=== PATIENT | female | born 1995 | race Caucasian/White ===

== ENCOUNTER 2025-02-28 15:30 | Emergency (ER) | payer BC, SELFPAY ==
--- OUTSIDE RECORDS SUMMARY | 2019-12-25 05:53 | XMS_ITS | Continuity of Care Document ---
Author Organization [facility] Address [address] [place] [address] Phone Care Team Providers Care Corporate Fitness Program Coordinator Name Role Phone Cody Keane MD Unavailable Unavailable Allergies, Adverse Reactions, Alerts Substance Reaction Status Criticality iodine Unknown(not reported) Active No Inf ormation clams Active No Information shrimp Active No Information milk Active No Information Medications Medication Instructions Dosage Effective Dates (start - stop) Status Comments citalopram 20 mg tablet take 1 tablet by oral route every day 20 MG - Active montelukast 10 mg tablet take 1 tablet by oral route every day in the evening 10 MG - Active Claritin Liqui-Gel 10 mg capsule - Active Tri-Sprintec (28) 0.18 mg(7)/0.215 mg(7)/0.25 mg(7)-35 mcg tablet take 1 tablet by oral route every day 1.00 tablet - Active cyclobenzaprine 10 mg tablet take 1 tablet by oral route every day 10 MG - Active tramadol 50 mg tablet take 1 tablet by oral route every 8 hours as needed 50 MG - Active Proair Digihaler 90 mcg/actuation aerosol powder breath act, sensor inhale 2 puff by inhalation route every 4 - 6 hours as needed - Active Auvi-Q 0.3 mg/0.3 mL injection, auto-injector inject 0.3 milliliter by intramuscular route once as needed for anaphylaxis 0.3 MG - Active Cosentyx 150 mg/mL subcutaneous syringe inject 2 milliliter by subcutaneous route every 4 weeks in the abdomen, thigh, or outer area of upper arm (rotate sites) 300 MG - Active prednisone 5 mg tablet take 1 tablet by oral route every day 5 MG - Active Womens Daily Gummies 200 mcg chewable tablet - Active D3-2000 50 mcg (2,000 unit) capsule - Active meloxicam 15 mg tablet take 1 tablet by oral route every day 15 MG - Active Procedures Procedure Date OFFICE/OUTPATIENT VISIT EST OFFICE/OUTPATIENT VISIT NEW Advance Directives Directive Yes / No Effective Date File Name No Information Encounters Encounter Description Practice Location Reason(s) For Visit Diagnoses Date Provider Providers Copied on Encounter [facility] , [address] [place] [address], [place], [address], tel:[phone] [facility] No Information 0- 0 Keane Cody. [address] [facility] [employer] [address], [place], [place], [id number] , [place]. tel: [phone] OFFICE/OUTPAT IENT VISIT EST [facility] , [address] [address], [place], [address], tel:[phone] [facility] Patellofemoral pain syndrome of left knee 0 Keane Cody. [address] [facility] [employer] [address], [place], [place], [id number] , [place]. tel: [phone] OFFICE/OUTPAT IENT VISIT NEW [facility] , [address] [place] [address], [place], [address], [place] tel:[phone] [facility] Body mass index [BMI]30.0-30.9, adultAcute pain of left knee 0 Keane Cody. [address] [facility] [address], [place], [place], [id number] , [place]. tel: [phone] Referring Provider: Camryn Hollins, [address] [facility] [address] [facility] [address], [place], [address] . tel:[phone] Family History Family Member Type Diagnosis Age At Onset Mother Problem Alive and well Father Problem Alive and well Payers Payer name Insurance type Covered green party ID Authoriza tisuyapa(s) Blue Access PPO E2 OT [id number] Social History Type Description Quantity Date Captured Comments Alcohol Use Details Unknown Caffeine Use Details Unknown Tobacco Use Status No Information Smoking Status No Information Sex Female Chief Complaint And Reason For Visit No Information Reason For Referral Reason For Referral No Information Plan Of Treatment Date Type Action Status Referral Ordered: MRI ANY JT LXTR C-MATRL LT knee Appointment date/timeframe: 12/20/2019 ordered History Of Present Illness Encounter Date Complaint History Of Prese nt Illness No Information Functional Status Date Functional Assessmen t No Information Instructions Date Instruction Additional Infor kimo Giving encouragement to exercise Related to Body mass index [BMI]30.0-30.9, adult Assessments Type Assessment Date No Information Patient Care Teams Name Effective Dates (start - stop) Status Members No Information
--- OUTSIDE RECORDS SUMMARY | 2020-01-29 08:58 | XMS_ITS | Continuity of Care Document ---
Author Organization [facility] Address [address] [place] [address] [place] [address] Phone Care Team Providers Care Filer And Sander Name Role Phone Herve PT, DPT, Jessica Unavailable Unavaila ble Procedures Procedure Date Therapeutic Activities Hot or Cold Pack Manual Therapy Neuromuscular Re-Ed PT Evaluation Moderate Complexity Therapeutic Activities Neuromuscular Re-Ed Gait Training Progress Note Neuromuscular Re-Ed Therapeutic Activities Therapeutic Exercise Hot or Cold Pack Therapeutic Activities Neuromuscular Re-Ed Therapeutic Exercise Manual Therapy Therapeutic Activities Neuromuscular Re-Ed Therapeutic Exercise Hot or Cold Pack Manual Therapy Therapeutic Activities Therapeutic Exercise Neuromuscular Re-Ed Manual Therapy Hot or Cold Pack Therapeutic Activities Neuromuscular Re-Ed Therapeutic Exercise Manual Therapy Hot or Cold Pack PT Evaluation Moderate Complexity Therapeutic Exercise Progress Note Therapeutic Exercise Therapeutic Activities Neuromuscular Re-Ed Manual Therapy Therapeutic Exercise Therapeutic Activities Hot or Cold Pack Therapeutic Activities Manual Therapy Neuromuscular Re-Ed Hot or Cold Pack Therapeutic Activities Neuromuscular Re-Ed Hot or Cold Pack Therapeutic Exercise Therapeutic Activities Neuromuscular Re-Ed Therapeutic Activities Neuromuscular Re-Ed Manual Therapy Hot or Cold Pack Therapeutic Activities Manual Therapy Therapeutic Activities Neuromuscular Re-Ed Manual Therapy Hot or Cold Pack Therapeutic Activities Neuromuscular Re-Ed Manual Therapy Hot or Cold Pack Therapeutic Activities Neuromuscular Re-Ed Manual Therapy Therapeutic Activities Neuromuscular Re-Ed Manual Therapy Hot or Cold Pack PT Evaluation Low Complexity Therapeutic Activities Neuromuscular Re-Ed Hot or Cold Pack Advance Directives Directive Yes / No Effective Date File Name No Information Encounters Encounter Description Practice Location Reason(s) For Visit Diagnoses Date Provider Providers Copied on Encounter [facility], [id number], tel:[phone] [employer] No Information Herve Lopez. . [facility], [place], [address], tel:[phone] [employer] No Information Herve Jessica. . Referring Provider: Cody Perez, [address] [facility] [address], [place], [address]. tel:[phone] [facility], [place], [id number], tel:[phone] [facility] [place] No Information Brooke Blackwell. [address] [facility], [address], [place], [address], [place]. tel:[phone] Referring Provider: Cody Perez, [address] [facility], [place], [address]. tel:[phone] [facility], [address] [place], [place] [address], [place], [place], [id number], [place] tel:[phone] [facility] No Information Beffa Sara. [address] [facility], [address], [place], [address], [place]. tel:[phone] Referring Provider: Primitivo Alfaro, [facility] [place] [place], [place], [address]. tel:[phone] [facility], [address] [place], [place] [address], [place], [place], [address], [place] tel:[phone] [facility] No Information Beffa Sara. [address] [facility], [address], [place], [address], [place]. tel:[phone] Referring Provider: [facility] [address], [place], [address]. tel:[phone] [address], [place], [place], [address], [place] tel:[phone] [facility] No Information Beffa Sara. [address] [facility], [address], [place], [address], [place]. tel:[phone] Referring Provider: Primitivo Alfaro [address] [facility] [address], [place], [address]. tel:[phone] [address], [place], [place], [address], [place] tel:[phone] [place] No Information Beffa Sara. [address] [facility], [address], [place], [address], . tel:[phone] Referring Provider: Primitivo Alfaro, [address], [place], [address]. tel:[phone] [facility], [address] [place] [address] [address], [place], [place], [address], [place] tel:[phone] [employer] No Information Herve Lopez. . Referring Provider: Primitivo Alfaro, [address], [place], [address]. tel:[phone], [place], [place], [address], tel:[phone] [employer] No Information Ijeoma Ruiz. [address] [place] [address], [address], [place], [place], [facility], . tel:[phone] Referring Provider: Primitivo Alfaro, [address], [place], [address]. tel:[phone] [facility] [address], [place], [place], [address], [place] tel:[phone] [employer] No Information Herve Lopez. . Referring Provider: Layo Cazares, [address] [facility] [address], [place], [address]. tel:[phone], [place], [place], [address], [place] tel:[phone] [employer] No Information Herve Lopez. . Referring Provider: Layo Cazares, [address] [facility] [address], [place], [address]. tel:[phone] [facility] [address], [place], [place], [address], [place] tel:[phone] [employer] No Information Edgar Jessica. . Referring Provider: Layo Cazares, [address] [facility] [address], [place], [address]. tel:[phone] [facility] [address], [place], [place], [address], tel:[phone] [employer] No Information Edgar Jessica. . Referring Provider: Layo Cazares, [address] [facility] [address], [place], [address]. tel:[phone] [facility] [address], [place], [place], [address], tel:[phone] [employer] No Information Edgar Jessica. . Referring Provider: Chong Banks [facility] [address] [place] [address], [address]. tel:[phone] [facility] [address], [place], [place], [address], [place] tel:[phone] [employer] No Information Edgar Jessica. . Referring Provider: Layo Cazares, [address] [facility] [address] [place] [address], [address]. tel:[phone] [facility] [address], [place], [place], [address], [place] tel:[phone] [employer] No Information Edgar Jessica. . Referring Provider: Layo Cazares [address] [facility] [address] [place] [address], [address]. tel:[phone] [facility] [address], [place], [place], [address], tel:[phone] [employer] No Information Ijeoma Ruiz. [address] [facility], [address], [place], [address], . tel:[phone] Referring Provider: Layo Cazares, [address], [place], [address]. tel:[phone], [place], [place], [address], [place] tel:[phone] [facility] [place] No Information Ijeoma Ruiz. [address] [facility], [address], [place], [place], [facility], . tel:[phone] Referring Provider: Layo Cazares, [address] [facility] [address], [place], [address]. tel:[phone], [place], [place], [address], tel:[phone] [facility] [place] Sciatica, right side Herve Lopez. . Referring Provider: Layo Cazares, [address], [place], [address]. tel:[phone], [place], [place], [address], [place] tel:[phone] [facility] [place] Sciatica, right side Herve Lopez. . Referring Provider: Layo Cazares, [address], [place], [address]. tel:[phone], [place], [place], [address], [place] tel:[phone] [facility] [place] Sciatica, right side Herve Lopez. . Referring Provider: Layo Cazares, [address], [place], [address]. tel:[phone] Family History Family Member Type Diagnosis Age At Onset No Information Payers Payer name Insurance type Covered green party ID Authormassielcolin champion(s) [facility] Evelyne SHAH [id number] Social History Type Description Quantity Date Captured Comments Sex Female Smoking Status No Information Chief Complaint And Reason For Visit No Information Reason For Referral Reason For Referral No Information Plan Of Treatment Date Type Action Status Referral Ordered: Referrals: Specialist. Evaluate and Treat (related to Adjustment disorder with depressed mood) ordered Referral Ordered: Referrals: Specialist. Evaluate and Treat (related to F43.21) ordered Referral Ordered: PCP timeframe: 1 week. (related to Overweight) ordered Referral Ordered: Clinical Psychology (related to Depression) ordered Referral Ordered: Weight management: Referral to physician timeframe: 1 Month (related to Overweight) ordered Referral Ordered: PCP timeframe: 1 week. (related to Overweight) ordered Referral Ordered: Referrals: Specialist. Evaluate and Treat (related to F43.21) ordered Referral Ordered: Clinical Psychology (related to Depression) ordered Referral Ordered: PCP timeframe: 1 week. (related to Overweight) ordered History Of Present Illness Encounter Date Complaint History Of Prese nt Illness No Information Functional Status Date Functional Assessmen t No Information Instructions Date Instruction Additional Millicentr kimo Giving encouragement to exercise Related to Overweight Assessments Type Assessment Date No Information Patient Care Teams Name Effective Dates (start - stop) Status Members No Information
[2025-02-28] VITALS (10 sets, daily range): BP systolic 114–136; BP diastolic 76–88; PULSE 86; RESP 16; TEMP 36.4; O2SAT 98–100
--- NOTE | ~2025-02-28 | XR_ITS ---
EXAMINATION: XR chest 2V 02/28/2025 16:11 INDICATION: Shortness of breath PROCEDURE: 2 view chest COMPARISON: No prior studies for comparison. FINDINGS: The lungs are clear. The cardiomediastinal silhouette is within normal limits. There are no pleural effusions. There is no pneumothorax suspected. IMPRESSION: 1: NO ACUTE CARDIOPULMONARY DISEASE. Reviewed, dictated and finalized at location [employer]
[2025-02-28] MEDS: SODIUM CHLORIDE 0.9% IV 1,000 ML 999 ML IV CONT (16:19)
[2025-02-28 16:24] LABS: Hematocrit 41.5 % (37.0-47.0); Hemoglobin 13.7 g/dL (12.0-15.0); Immature Granulocyte Percent A 0.6 % (0-0.5); Lymphocytes Absolute Auto 0.85 K/mm3 (0.9-3.2); Mean Corpuscular HGB Conc 33.0 g/dl (32-36); Mean Corpuscular Hemoglobin 27.7 pg (26-34); Mean Corpuscular Volume 83.8 fl (80-100); Nucleated Red Blood Cells Absolute Auto 0.000 K/mm3 (0.0-0.012); Nucleated Red Blood Cells Perc 0.0 % (0.0-0.2); Platelet Count Result 471 k/mm3 (150-375); Red Blood Count 4.95 M/mm3 (4.2-5.4); White Blood Count 16.9 K/mm3 (4.5-10.0)
[2025-02-28 16:34] LABS: Alanine Aminotransferase 32 U/L (6-35); Albumin Level 4.6 g/dL (3.5-5.1); Alkaline Phosphatase 64 U/L (38-126); Anion Gap 10 mmol/L (4-12); Aspartate Amino Transferase 29 U/L (14-36); Bilirubin,Total 0.5 mg/dL (0.2-1.3); Blood Urea Nitrogen 13 mg/dL (7-17); Calcium 9.9 mg/dL (8.4-10.2); Carbon Dioxide 23 mmol/L (22-30); Chloride 106 mmol/L (98-107); Estimated Glomerular Filt Rate > 60; Glucose 119 mg/dL (65-110); Potassium 4.0 mmol/L (3.4-5.0); Sodium 139 mmol/L (137-145); Total Protein 8.7 g/dL (6.3-8.2)
--- OUTSIDE RECORDS SUMMARY | 2025-02-28 17:46 | XMS_ITS | Data Portability ---
Author Organization [facility] , [facility] Address [address] [place] [address] Assessment No assessment recorded. Plan of Treatment Reminders Order Date Submit Date Provider Last Modified By Organization Details Last Modified Time Details Appointments None recorded. Lab pap, LB 2024 025 [facility], [address] [place], [address], 5 12:08:23 unlisted lab - Pap reflex hold plus CT/GC/tric h 2024 025 [facility] Alex, [address] [place], [address], 15:40:30 Referral None recorded. Procedures None recorded. Surgeries None recorded. Imaging None recorded. Medication Orders None recorded. Patient TargetsNo targets recorded. Patient Instructions Encounter Date Encounter Id Patient Instructions Last Modified By Organization Details Last Modified Time 05/03/2024 [id number] A healthy lifestyle: care instructions [email or web address] Not available 05/03/2024 14:28:59 Following the [employer] Food Guide: Care Instructions [email or web address] Not available 05/03/2024 14:28:59 exercise program : getting started bnotzke Not available 05/03/2024 14:28:59 contraception information [email or web address] Not available 05/03/2024 14:28:59 Reason for Referral None Reported. Results Created Date Observation Date Name Description Value Unit Range Abnormal Flag Note LastModifiedBy Organization Detail LastModifiedTime 05/03/1905/07/2024 THINP REP TIS PAP clinical information: normal None given Not Available [address] [place], [address], 05/07/2024 12:08:23 05/03/19 25 05/07/2024 THINP REP TIS PAP LMP: normal NONE GIVEN Not Available [address] [place], [address], 05/07/2024 12:08:23 05/03/19 25 05/07/2024 THINP REP TIS PAP prev. Pap: normal NONE GIVEN Not Available [address], [address], 05/07/2024 12:08:23 05/03/19 25 05/07/2024 THINP REP TIS PAP prev. BX: normal NONE GIVEN Not Available [address], [address], 05/07/2024 12:08:23 05/03/19 25 05/07/2024 THINP REP TIS PAP source: normal Cervi x Not Available [address], [address], 05/07/2024 12:08:23 05/03/19 25 05/07/2024 THINP REP TIS PAP statement of adequacy: normal Satis facto ry for evalu ation . Endoc ervic al/tr ansfo rmati on zone compo nent prese nt. Age and/o r menst rual statu s not provi ded Not Available [address], [address], 05/07/2024 12:08:23 05/03/19 25 05/07/2024 THINP REP TIS PAP interpretati on/result: normal Cytol ogy Resul ts: Negat micah for intra epith elial lesio n or malig issac . Not Available [address] [place], [address], 05/07/2024 12:08:23 05/03/19 25 05/07/2024 THINP REP TIS PAP comment: normal This Pap test has been evalu ated with jefe littlejohn techn ology . Not Available [facility] [address] [place], [address], 05/07/2024 12:08:23 05/03/19 25 05/07/2024 THINP REP TIS PAP cytotechnolo gist: normal CAMPBELL, CT( CP) CT Scree judith locat ion: [address] [place] [address] Not Available [facility] [address] [place], [address], 05/07/2024 12:08:23 05/03/19 25 05/07/2024 THINP REP TIS PAP comment EXPLA NATOR Y NOTE: The Pap is a scree judith test for cervi rebel cance r. It is not a diagn ostic test and is subje ct to false negat micah and false posit micah resul ts. It is most relia ble when a satis facto ry sampl e, regul tyra obtai manisha, is submi tted with relev ant clini rebel findi ngs and histo ry, and when the Pap resul t is evalu ated along with histo dave and curre nt clini rebel infor matio n. Not Available [facility] [address], [place], [address], 05/07/2024 12:08:23 05/03/19 25 05/07/2024 CT/GC /TRIC H + HOLD trichomonas vaginalis TRICH neg negati ve normal Not Available [facility] [address] [place], [address], 05/07/2024 15:40:30 05/03/19 25 05/07/2024 CT/GC /TRIC H + HOLD chlamydia trachomatis CT neg negati ve normal This repor t is inten ded for us in clini rebel monit oring and manag ement of patie nts. It is not inten ded for use in medic al-le gal appli catio n. Not Available [facility] [address] [place], [address], 05/07/2024 15:40:30 05/03/19 25 05/07/2024 CT/GC /TRIC H + HOLD neisseria gonorrhoeae GC neg negati ve normal This repor t is inten ded for us in clini rebel monit oring and manag ement of patikatherin nts. It is not inten ded for use in medic al-le gal appli catio n. Not Available [facility] Alex [address] [facility], [place], [address], 05/07/2024 15:40:30 Result Notes None recorded. Problems Name Problem SNOMED Code Status Onset Date Resolution Date Notes Provider Name and Address Organization Details Recorded Time Formerly [facility], Later [facility] [id number] Active 2024 Saira aguilar, [facility] 14:02:44 Problem Notes None recorded. Procedures Surgical History Date Name Laterality Status Provider Name and Address Organization Details Recorded Time 05/03/19 Date of Last Pap Smear completed [facility] [address] [facility], [place], [address], [facility] 05/03/2024 14:28:22 lumbar microdiscectomy completed Saira Monge [facility] 05/03/2024 14:04:30 Imaging Results None recorded. Procedure Notes None recorded. Medical Equipment None Reported. Allergies Allergen ID Allergen Name Allergen Category Reaction Reaction Severity Criticality Documentation Date Start Date Code Code System Note Provider Name and Address Organization Details Recorded Time 464816 iodine medicatio n Not available Not available Not available 05/03/20242019 5933 RxNorm Saira aguilar, [facility] 5 14:10:51 384256 latex environme nt,medica tion rash Not available high 05/03/20242015 20301 91 RxNorm unrec ogniz ed react ion (text : Unkno wn, code: [id number]) (from exter nal sourc e) Saira aguilar, [facility] 14:10:54 Medications Name Sig Start Date Stop Date Status Note LastModified by Organization Details LastModified Time levothyroxin e active 75 mg Not Available Not Available Not Available Vitamin D3 active Not Available Not Av ailable Not Available Zyrtec active Not Available Not Availa ble Not Available Advair Diskus active Not Available Not Available Not Available Abilify active Not Available Not Avail able Not Available albuterol 90 mcg-budesoni de 80 mcg/actuatio n HFA aerosol inhaler Inhale by inhalation route. active Not Available Not Available No t Available Vitals Date Recorded Body height Body mass index (BMI) Body weight Body temperature Systolic And Diastolic Provider Name and Address Organization Details Last Updated DateTime 05/03/2024 172.72 cm 24.1 kg/m2 27552.7 5 g 97.3 [degF] 104/62 mm[Hg] Frankypaula Monge [facility] 14:10:00 Social History Question Answer Notes LastModified by [employer] Details LastModified Time Tobacco Smoking Status Never Smoker Yvesvalentinapaula Monge null, [facility] 05/03/2024 13:53:04 If You Are , What Was Your Level Of Alcohol Consumption Prior To ? None Information not available 05/03/2024 How Many Years Have You Consumed Alcohol? 10 [email or web address] Information not available 05/03/2024 Are You Blind Or Do You Have Difficulty Seeing? Yes [email or web address] Information not available 05/03/2024 Are You Deaf Or Do You Have Serious Difficulty Hearing? No [email or web address] Information not available 05/03/2024 What Type Of Diet Are You Following? REGULAR [email or web address] Information not available 05/03/2024 Which Illicit Or Recreational Drugs Have You Used? Marijuana [email or web address] Information not available 05/03/2024 How Many Children Do You Have? 0 [email or web address] Information not available 05/03/2024 What Is Your Relationship Status? Other [email or web address] Information not available 05/03/2024 Are You Sexually Active? Yes [email or web address] Information not available 05/03/2024 Have You Used IV Drugs? No [email or web address] Information not available 05/03/2024 Sex: Unknown Functional Status Question Answer Note LastModified by Organizat ion Details LastModified Time Do you use any illicit or recreational drugs? Yes [email or web address] Information not available 05/03/2024 What is your level of alcohol consumption? Occasional [email or web address] Information not available 05/03/2024 Are you currently employed? No [email or web address] Information not available 05/03/2024 What is your exercise level? Occasional [email or web address] Information not available 05/03/2024 Mental Status None recorded. Family History Relationship Description Onset Age of this Age Resolved Age Notes LastModified by Organization Details LastModified Time Mother Depressive disorder [email or web address] Not available 05/03 13:52:41 Unspecified Relation Malignant neoplasm of breast [email or web address] Not available 05/03 13:52:41 Paternal Grandfather Malignant neoplasm of lung [email or web address] Not available 05/03 13:52:41 Father Depressive disorder [email or web address] Not available 05/03 13:52:41 Medical History Condition Response Depression Y Anxiety Disorder Y Autoimmune disease Y Asthma Y Bipolar Disorder Y Gynecological History Statement/Question Response Flow Heavy Date of last HPV Date of LMP 04/25/2024 HPV Vaccine Y Duration of Flow (days) 2 Most Recent Mammogram Current Control Method None Age at Menarche 7 Date of Last Colonoscopy Most Recent Bone Density Frequency of Cycle (Q days) 28 Date of Last Pap Smear 05/03/2024 Obstetrics History GPAL:G 1 P 0 0 1 0 Type Value Induced 1 Living 0 Total 1 Past Encounters Encounter ID Performer Location Encounter Start Date Encounter Closed Date Diagnosis/Indication Diagnosis SNOMED-CT Code Diagnosis ICD10 Code Diagnosis IMO Codes Diagnosis Note [id number] [facility] h [address] [place] [address] 05/03/2024 13:51:01 05/03/2024 16:28:32 Gynecologic examination 08192717 Z01.419 Patient is new to our Practice. She presents today for a gynecologi rebel Annual Exam. Patients Past Medical History and Family History reviewed. Annual Exam:She reports having no significan t MANAGER APPLICATION DEVELOPMENT symptoms.H er menses are regular, occurring every 1 month(s). Menses lasts for 2 days. Reports they are not heavy or painful. Denies spotting in between.Pt is currently using nothing for contracept ion. She would like Nexplanon. Pap History:Jeb pandey is due for a pap smear. Breast History:Jeb pandey denies breast symptoms. Education on Breast Self Awareness given. Patient is regularly seen by PCP for preventati ve care: Yes Screening for malignant neoplasm of cervix 723814793 Z12.4 Contracept ion education 257537243 Z30.09 Contracept micah counseling : Discussed options including OCPs, NuvaRing, Nexplanon, hormonal and copper IUDs. Discussed risks, efficacy, noncontrac eptive benefits, and side effects of each option, including risk of VTE with hormonal contracept ion and uterine perforatio n, expulsion, infection with IUD. Depression screening 171 254903 Z13.31 See PHQ-9 Screening Health Concerns Section Related Observation LastModified by Organization Detai ls LastModified Time None Recorded Concern Status LastModified by Organization Details LastModified Time None Recorded Advance Directives Directive None Recorded Payers Insurance Date Sequence Insurance Name Policy Number Policy Claire Covered Member ID Claire Member ID Guarantor Name 05/07/2024 1 [employer] BETTER HEALTH OF [place] ON OR AFTER 02/05/2020 (MEDICAID REPLACEMENT - HMO) Raven Hamilton [id number] Raven Hamilton Notes Date Note Type Note Provider Name and Address Organization Details Recorded Time 5 text/html Annual GYNReported by PatientGenitourinary symptomsFor menstrual cycle, patient reportsnormal menses. For urinary symptoms, patient reportsno hematuriaandno incontinence. For vulva, patient reportsno genital lesion. For vagina, patient reportsnormal vaginal discharge.Breast symptomsFor breast, patient reportsno breast pain,no breast lump, andno nipple discharge.Endocrine symptomsFor sexual complaints, patient reportsno sexual complaints,no pain during intercourse, andnormal libido. For menopausal symptoms, patient reportsno menopausal symptomsandnormal vaginal lubrication.Psychological symptomsFor psychological symptoms, patient reportsno depression,no anxiety, andno pmdd.ROS as noted in the HPI Raven is here for an annual exam. Pt LMP was 04/25/24. She does not know when her last pap was performed. Pt does not use anything for control right now, but would like to start the Nexplanon implant. She scored 15 on the PHQ9 screening. Pt has no other issues. EDVIN BACON, [facility]- [address] [facility], [place], [address], [facility] 05/03/2024 14:29:23 OBGyn Episode No OBEpisode recorded.
--- OUTSIDE RECORDS SUMMARY | 2025-02-28 17:46 | XMS_ITS | Clinical Summary ---
Author Organization [facility] Address [address] [place] [address] Care Team Providers Care Marketing Outreach Coordinator Name Role Phone Chasity Camryn Hollins DO Primary Care Provider [phone] Source Comments [facility],non-owned Affiliates and Associated Physician Practices is amultiple site organization consisting of ambulatory clinics and hospital sitesin [place], [place], [place] and [place]. This disclosure is being madepursuant to the Care Everywhere program and may not contain all information available regarding this patient. Last updated 17.[facility] Allergies Active Allergy Reactions Criticality Noted Date Comments Latex Unknown 01/19/2016 Medications * Be aware that medications may not be up to date on this document. Alwaysverify current medications with the patient. fluticasone propionate (FLONASE) 50 MCG/ACT nasal spray [place] 2 Sprays into each nostril once daily 16 g 0 5 Active Additional Information Patient not taking.Reported on 08/24/2018 triamcinolone acetonide (KENALOG) 0.1 % cream Apply to affected area 2 times daily 30 g 9 Active Additional Information Patient not taking.Reported on 11/18/2018 PROAIR RESPICLICK 108 (90 Base) MCG/ACT Inhale 2 puffs by mouth every 4 hours as needed 2 9 Active citalopram (CELEXA) 20 MG tablet Take 20 mg by mouth once daily 5 9 Active montelukast (SINGULAIR) 10 MG tablet Take 10 mg by mouth once daily 5 9 Active norgestim-eth estrad triphasic tablet Tri-Sprintec (28) 0.18 mg(7)/0.215 mg(7)/0.25 mg(7)-35 mcg tablet Active lidocaine (LIDODERM) 5 % patch Apply 1 patch to skin once daily 7 patch 9 Active naproxen (NAPROSYN) 500 MG tablet Take 1 (one) tablet by mouth 2 times daily as needed for Pain 20 tablet 1 Active cyclobenzaprine (FLEXERIL) 10 MG tablet Take 1 (one) tablet by mouth 3 times daily as needed for Muscle Spasms 12 tablet 1 Active HYDROcodone-ced taminophen (NORCO) 5-325 MG tablet Take 1 (one) tablet by mouth every 6 hours as needed for Pain 8 tablet 1 Active methocarbamol (ROBAXIN) 500 MG tablet Take 1 (one) tablet by mouth every 6 hours as needed for Muscle Spasms 20 tablet 1 Active Active Problems Problem Noted Date Diagnosed Date Back pain 11/20/2018 Asthma 08/24/2018 Bipolar disorder 08/24/2018 Depressive disorder 08/24/2018 Immunizations Immunization Administration Dates Next Due FLU VACCINE QUAD IIV4 PF ID 01/14/2017 TDAP (7yrs+) 01/08/2016 Social History Tobacco Use Types Packs/Day Years Used Date Smoking Tobacco: Never Smokeless Tobacco: Never Alcohol Use Standard Drinks/Week Comments No 0 (1 standard drink = 0.6 oz pur e alcohol) AUDIT-C Answer Date Recorded Q1: How often do you have a drink containing alc ohol? Never 01/22/2021 Average Number of Drinks Not on file 021 Q3: How often do you have si x or more drinks on one occasion? Never 01/22/2021 Comments No Sex and Gender Information Value Date Recorded Sex Assigned at Not on file Legal Sex Female 8:14 PM CDT Gender Identity Not on file Sexual Orientation Not on file Last Filed Vital Signs Vital Sign Reading Time Taken Comments Blood Pressure 141/105 02/06/2021 11:46 AM ESCROW OFFICER Pulse 115 02/06/2021 11:46 AM ESCROW OFFICER Temperature 36.6 C (97.8 F) 02/06/2021 11:46 AM ESCROW OFFICER Respiratory Rate 18 02/06/2021 11:46 AM ESCROW OFFICER Oxygen Saturation 100% 02/06/2021 11:46 AM ESCROW OFFICER Inhaled Oxygen Concentration - - Weight 97.5 kg (215 lb) 02/06/2021 11:46 AM ESCROW OFFICER Height 172.7 cm (5' 8) 02/06/2021 11:46 AM ESCROW OFFICER Body Mass Index 32.69 02/06/2021 11:46 AM ESCROW OFFICER Plan of Treatment Health Maintenance Due Date Last Done Comments HIV SCREENING 2009 HEPATITIS C SCREENING 06/14/2012 HEPATITIS B VACCINE (1 of 3 - 19+ 3-dose series) 2013 HPV VACCINE (1 - 3-dose SCDM series) 2021 COVID-19 VACCINE ( - 2024-2 6 season) 2024 INFLUENZA VACCINE (#1) 2024 01/14/2017 DTAP/TDAP/TD VACCINES (2 - T d or Tdap) 01/07/2026 01/08/2016 ZOSTER VACCINE (1 of 2) 2044 HIB VACCINE Aged Out No longer eligi ble based on patient's age to complete this topic MENINGOCOCCAL (Group B) VACC INE SHARED DECISION-MAKING Aged Out No longer eligibl e based on patient's age to complete this topic MENINGOCOCCAL GROUPS A/C/Y/W VACCINE Aged Out No longer eligible b ased on patient's age to complete this topic PNEUMOCOCCAL VACCINE Aged Out No long er eligible based on patient's age to complete this topic Insurance ANTHEM Care Teams Marketing Outreach Coordinator Relationship Specialty Start Date End Date Camryn Gaspar DO [address] [place], [place] [id number] PCP - General Family Medicine 05/24/20
--- OUTSIDE RECORDS SUMMARY | 2025-02-28 17:46 | XMS_ITS | Clinical Summary ---
Author Organization [facility] [place] Address [address] [address] [place] [address] Care Team Providers Care Financial Controller Name Role Phone Layo Villalobos NP Primary Care Provi cassandra Allergies Active Allergy Reactions Criticality Noted Date Comments Iodine Unknown 12/17/2019 Latex Unknown 01/19/2016 Medications citalopram (CeleXA) 20 mg tablet Take 20 mg by mouth daily at bedtime. Active montelukast (SINGULAIR) 10 mg tablet Take 10 mg by mouth daily at bedtime. Active norgestimate-ethi nyl estradiol (TRI-SPRINTEC, 28,) 0.18/0.215/0.25 mg-35 mcg (28) tablet Tri-Sprintec (28) 0.18 mg(7)/0.215 mg(7)/0.25 mg(7)-35 mcg tablet Active baclofen (LIORESAL) 10 mg tablet baclofen 10 mg tablet Take 1 tablet twice a day by oral route as needed. Active epinephrine (EPIPEN INJECTION) by Injection route. Active cyclobenzaprine (FLEXERIL) 10 mg tablet Take 10 mg by mouth 3 times daily as needed. 1 Active HYDROcodone-aceta minophen (NORCO) 5-325 mg tablet Take 1 Tablet by mouth every 6 hours as needed. 1 Active methocarbamoL (ROBAXIN) 500 mg tablet Take 500 mg by mouth every 6 hours as needed. 1 Active naproxen (NAPROSYN) 500 mg tablet Take 500 mg by mouth 2 times daily as needed. 1 Active albuterol sulfate 90 mcg/Actuation inhalerIndication s:Mild persistent asthma with exacerbation Take 2 Puffs by inhalation every 6 hours as needed for Shortness of Breath or Wheezing. 8.5 Gram 1 Active Active Problems Patient Care Coordination No te Formatting of this note migh t be different from the original. SLICING MACHINE TENDER DR BINH FLOWER MD, [facility], [facility] Problem Noted Date Diagnosed Date Vertigo Anxiety Asthma Depressive disorder Paranoid ideation Tobacco dependence Immunizations Immunization Administration Dates Next Due (ADACEL/BOOSTRIX)(10 YR UP) TDAP VACCINE, 0.5ML, IM 10/21/2019 Family History Medical History Relation Name Comments Paranoid Behavior Father Bipolar Disorder Mother Cancer Paternal Grandfather Ed Heart Surgery Paternal Grandfather Ed Relation Name Status Comments Father Alive Maternal Grandfather Don Mother Alive Paternal Grandfather Ed Alive Social History Tobacco Use Types Packs/Day Years Used Date Smoking Tobacco: Never Smokeless Tobacco: Never Alcohol Use Standard Drinks/Week Comments Yes 0 (1 standard drink = 0.6 oz pur e alcohol) Rarely Comments No Sex and Gender Information Value Date Recorded Sex Assigned at Not on file Legal Sex Female 3:31 AM COMB WINDER Gender Identity Not on file Sexual Orientation Not on file Last Filed Vital Signs Vital Sign Reading Time Taken Comments Blood Pressure 128/86 03/02/2021 6:03 PM COMB WINDER Pulse 100 03/02/2021 6:03 PM COMB WINDER Temperature 37.1 C (98.7 F) 03/02/2021 6:03 PM COMB WINDER Respiratory Rate 18 03/02/2021 6:03 PM COMB WINDER Oxygen Saturation 98% 03/02/2021 6:03 PM COMB WINDER Inhaled Oxygen Concentration - - Weight 96.2 kg (212 lb) 03/02/2021 6:03 PM COMB WINDER Height 172.7 cm (5' 8) 03/02/2021 6:03 PM COMB WINDER Body Mass Index 32.23 03/02/2021 6:03 PM COMB WINDER Plan of Treatment Health Maintenance Due Date Last Done Comments HEPATITIS B VACCINES (1 of 3 - 19+ 3-dose series) 2013 HPV/Cotest (21-29) 06/20/2015 CERVICAL CANCER SCREENING 2024 HPV/Cotest (30-65) 2024 PAP SMEAR 2024 INFLUENZA VACCINE (#1) 2024 01/14/2017 DTAP/TDAP/TD VACCINES (3 - Td or Tdap) 10/20/2029, 01/08/2016 HPV VACCINES (No Doses Required) Completed Insurance BLUE PREFERRED Care Teams Financial Controller Relationship Specialty Start Date End Date Layo Villalobos NP [address] [place] [address] PCP - General NURSE PRACTITIONER 01/08/16
--- OUTSIDE RECORDS SUMMARY | 2025-02-28 17:46 | XMS_ITS | Encounter Summary ---
Author Organization [facility] Address [address] [place] [address] Care Team Providers Care Manager Roofing Name Role Phone Layo Villalobos NP Primary Care Provi cassandra Encounter Details Date Type Department Care Team (Late st Contact Info) Description 03/15/1999 Emergency [facility] W[facility] Isai Garcia MD [address] [address] Unspecified viral infection, in conditions classified elsewhere and of unspecified site (Primary Dx) Social History Tobacco Use Types Packs/Day Years Used Date Smoking Tobacco: Never Assessed Comments Unknown Sex and Gender Information Value Date Recorded Sex Assigned at Not on file Legal Sex Female 3:31 AM MAJOR DONOR COORDINATOR Gender Identity Not on file Sexual Orientation Not on file documented as of this encounter Plan of Treatment Not on file documented as of this encounter Visit Diagnoses Diagnosis Unspecified viral infection, in conditions classified elsewhere and of unspecified site- Primary documented in this encounter Care Teams Manager Roofing Relationship Specialty Start Date End Date Layo Villalobos NP [address] [place] [phone] PCP - General NURSE PRACTITIONER 01/08/16 documented as of this encounter
--- NOTE | 2025-02-28 17:57 | ED_ITS ---
HPI - General Adult General Chief complaint: Upper Respiratory Infection Stated complaint: COVID+ SHORT OF BREATH ON EXERTION Time Seen by Provider: 02/28/25 15:48 History of Present Illness HPI narrative: Patient is a 29-year-old female who presents ER with shortness of breath. Diagnosed 2 days ago with COVID. Was at work and walked across the facility and was so dyspneic decided come in for further evaluation. Has mild cough. Nonproductive. No fevers chills or sweats. No chest pain. No hemoptysis. Related Data Allergies Allergy/AdvReac Type Severity Reaction Status Date / Time No Known Allergies Allergy Verified 02/28/25 15:31 Review of Systems 2 Review of Systems: All systems reviewed & are unremarkable except as noted in HPI and below Constitutional: Constitutional: Reports no additional constitutional complaints Eyes: Eyes: Reports no additional eye complaints Cardiovascular: Cardiovascular: Reports no additional cardiovascular complaints Respiratory: Respiratory: Reports no additional respiratory complaints Gastrointestinal: Gastrointestinal: Reports no additional gastrointestinal complaints Genitourinary: Genitourinary: Reports no additional female genitourinary complaints [facility] [place] Past Medical History Medical History (Updated 02/28/25 @ 18:01 by Brayden Yarbrough MD) Depression Anxiety Surgical History Surgical History (Updated 02/28/25 @ 17:59 by Brayden Yarbrough MD) No pertinent past surgical history Exam 2 Narrative: GENERAL: Well-appearing, well-nourished, and in no acute distress. HEAD: Normocephalic, atraumatic. ENT: Mucous membranes moist. CHEST: Clear to auscultation. No respiratory distress. HEART: Regular rate and rhythm. Normal peripheral pulses. ABDOMEN: Soft, nontender, nondistended. EXTREMITIES: Normal range of motion. No edema. SKIN: Warm, dry, no rash. NEURO: Alert and oriented x3. PSYCH: Normal mood and affect. Course Course Emergency Course: Elevated WBC secondary to methylprednisolone that she is taking. Labs otherwise unremarkable. Chest x-ray clear. No wheezing. No hypoxia. Appropriate for discharge home. Vital Signs Vital signs: Vital Signs Temperature 97.6 F 02/28/25 15:46 Pulse Rate 86 02/28/25 15:46 Respiratory Rate 16 02/28/25 15:46 Blood Pressure 136/88 02/28/25 15:46 Pulse Oximetry 99 02/28/25 15:46 Temperature 97.6 F 12/25/25 15:46 Pulse Rate 86 02/28/25 15:46 Respiratory Rate 16 02/28/25 15:46 Blood Pressure 136/88 02/28/25 15:46 Pulse Oximetry 99 02/28/25 15:46 [facility] Differential Diagnosis Differential Diagnosis: PE, pneumonia, COPD/asthma, sepsis Lab Data [facility] Lab Attestation statement: I personally reviewed the patient's lab results. 02/28/25 16:19 02/28/25 16:19 Labs: Lab Results 02/28/25 Range/Units 16:19 WBC 16.9 H (4.5-10.0) K/mm3 RBC 4.95 (4.2-5.4) M/mm3 Hgb 13.7 (12.0-15.0) g/dL Hct 41.5 (37.0-47.0) % MCV 83.8 (80-100) fl MCH 27.7 (26-34) pg MCHC 33.0 (32-36) g/dl RDW 12.9 (11.5-14.5) % Plt Count 471 H (150-375) k/mm3 MPV 9.6 (7.4-10.4) fl Immature Gran % (Auto) 0.6 H (0-0.5) % Neut % (Auto) 89.5 H (45.5-73.1) % Lymph % (Auto) 5.0 L (18.3-44.2) % [place] % (Auto) 4.6 (2.6-8.5) % Eos % (Auto) 0.1 (0-4.4) % Baso % (Auto) 0.2 (0.2-1.2) % Lymph # (Auto) 0.85 L (0.9-3.2) K/mm3 [place] # (Auto) 0.8 H (0.1-0.6) K/mm3 Eos # (Auto) 0.0 (0-0.3) K/mm3 Baso # (Auto) 0.0 (0.0-0.1) K/mm3 Abs Immat Gran (auto) 0.10 H (0.00-0.031) K/mm3 Absolute Neuts (auto) 15.1 H (1.3-6.7) K/mm3 Absolute Nucleated RBC 0.000 (0.0-0.012) K/mm3 Nucleated RBC % 0.0 (0.0-0.2) % Sodium 139 (137-145) mmol/L Potassium 4.0 (3.4-5.0) mmol/L Chloride 106 (98-107) mmol/L Carbon Dioxide 23 (22-30) mmol/L Anion Gap 10 (4-12) mmol/L BUN 13 (7-17) mg/dL Creatinine 0.68 L (0.7-1.0) mg/dL Estim Creat Clear Calc Not Reportable Estimated GFR > 60 (59 - ) Glucose 119 H (65-110) mg/dL Calcium 9.9 (8.4-10.2) mg/dL Total Bilirubin 0.5 (0.2-1.3) mg/dL AST 29 (14-36) U/L ALT 32 (6-35) U/L Alkaline Phosphatase 64 (38-126) U/L Total Protein 8.7 H (6.3-8.2) g/dL Albumin 4.6 (3.5-5.1) g/dL Imaging Data Attestation: I personally reviewed and interpreted this imaging study as follows: Radiologist's impression: ITS Impressions Chest X-Ray 02/28/25 16:16 IMPRESSION: 1: NO ACUTE CARDIOPULMONARY DISEASE. Discharge Plan Discharge Clinical Impression: COVID Patient Disposition: Home Condition: Stable Instructions: COVID-19 (Coronavirus Disease 2019) (ED) Additional Instructions: Please return to the emergency department if you develop severe and persistent chest pain, difficulty breathing, dizziness, leg swelling or if you are coughing up blood as these can be signs of a medical emergency. Please call your doctor for a follow up appointment to determine the need for further testing. Patient Language: Georgian Follow-up/Referrals: Eugenio,Britni Brewer, [Primary Care Provider, Unknown] - 1 Week Stand Alone Forms: Work/School Release IP
== END 2025-02-28 18:31 | disposition home or self-care (01) ==
PROVIDERS: Emergency Provider Emergency Medicine; PCP Family Medicine
DX: U07.1 COVID-19 (principal); F41.8 Other specified anxiety disorders
CPT/HCPCS: 36415; 71046; 80053; 85025; 96360; 99283; J7030